=== PATIENT | female | born 1975 | race Caucasian/White ===

== ENCOUNTER 2017-09-01 14:39 | Emergency (ER) | payer MEDICAID ==
[2017-09-01] MEDS ORDERED: NORMAL SALINE 1000 ML 1,000 ML IV ONE (15:47)
[2017-09-01] MEDS ORDERED: METOCLOPRAMIDE HCL INJ/PF 10 MG/2 ML SDV IV ONE (15:48)
[2017-09-01] MEDS ORDERED: DIPHENHYDRAMINE HCL 50 MG/ML VIAL IV ONE (15:48)
--- NOTE | 2017-09-01 15:51 | ER Document Report ---
ED Medical Screen (RME) - General Chief Complaint: Headache Stated Complaint: MIGRAINE Time Seen by Provider: 09/01/17 15:43 Mode of Arrival: Ambulatory Information source: Patient Notes: I have greeted and performed a rapid initial assessment of this patient. A comprehensive ED assessment and evaluation of the patient, analysis of test results and completion of the medical decision making process will be conducted by additional ED providers. 41-year-old female presents emergency department with complaints of a four-day history of migraine headache. Patient states that she does have a history of migraine headaches. She states that this headache feels similar to her previous headaches. She denies sudden onset of the headache. Patient describes the headache as a throbbing sensation on the right side of her head. No radiation of the pain. No alleviating factors. Pain worse with light, noise, smells. Patient has taken tylenol and benadryl without relief. Patient denies numness, tingling, weakness, speech changes, vision changes. PHYSICAL EXAMINATION: GENERAL: Well-appearing, well-nourished and in no acute distress. HEAD: Atraumatic, normocephalic. EYES: Pupils equal round extraocular movements intact, conjunctiva are normal. ENT: Nares patent NECK: Normal range of motion LUNGS: No respiratory distress Musculoskeletal: Normal range of motion NEUROLOGICAL: Normal speech, normal gait. PSYCH: Normal mood, normal affect. SKIN: Warm, Dry, normal turgor, no rashes or lesions noted. TRAVEL OUTSIDE OF THE [place] IN LAST 30 DAYS: No - Related Data Allergies/Adverse Reactions: No Known Allergies Allergy (Unverified 09/01/17 14:41) Physical Exam - Vital signs Vitals: Temp Pulse Resp BP Pulse Ox 98.1 F 71 16 147/99 H 95 09/01/17 14:44 09/01/17 14:44 09/01/17 14:44 09/01/17 14:44 09/01/17 14:44 Course - Vital Signs Vital signs: Temp Pulse Resp BP Pulse Ox 98.1 F 71 16 147/99 H 95 09/01/17 14:44 09/01/17 14:44 09/01/17 14:44 09/01/17 14:44 09/01/17 14:44
--- NOTE | 2017-09-01 17:54 | ER Document Report ---
ED General - General Chief Complaint: Headache Stated Complaint: MIGRAINE Time Seen by Provider: 09/01/17 15:43 Mode of Arrival: Ambulatory Information source: Patient Notes: 41-year-old female presents emergency department with complaints of a four-day history of migraine headache. Patient states that she does have a history of migraine headaches. She states that this headache feels similar to her previous headaches. She denies sudden onset of the headache. Patient describes the headache as a throbbing sensation on the right side of her head. No radiation of the pain. No alleviating factors. Pain worse with light, noise, smells. Patient has taken tylenol and benadryl without relief. Patient denies numness, tingling, weakness, speech changes, vision changes. TRAVEL OUTSIDE OF THE [place] IN LAST 30 DAYS: No - HPI Onset/Duration: Gradual Quality of pain: Throbbing Severity: Severe Associated symptoms: None Exacerbated by: Denies, Other - light, sound, smell Relieved by: Denies Similar symptoms previously: Yes Recently seen / treated by doctor: No - Related Data Allergies/Adverse Reactions: No Known Allergies Allergy (Unverified 09/01/17 14:41) Past Medical History - General Information source: Patient - Social History Smoking Status: Never Smoker Chew tobacco use (# tins/day): No Frequency of alcohol use: Occasional Drug Abuse: None Family History: Reviewed & Not Pertinent Patient has suicidal ideation: No Patient has homicidal ideation: No Neurological Medical History: Reports: Hx Migraine Renal/ Medical History: Denies: Hx Peritoneal Dialysis Past Surgical History: Reports: Hx Appendectomy, Hx Cholecystectomy Review of Systems - Review of Systems Constitutional: No symptoms reported EENT: No symptoms reported Cardiovascular: No symptoms reported Respiratory: No symptoms reported Gastrointestinal: No symptoms reported Genitourinary: No symptoms reported Female Genitourinary: No symptoms reported Musculoskeletal: No symptoms reported Skin: No symptoms reported Hematologic/Lymphatic: No symptoms reported Neurological/Psychological: Headaches Physical Exam - Vital signs Vitals: Temp Pulse Resp BP Pulse Ox 98.1 F 71 16 147/99 H 95 09/01/17 14:44 09/01/17 14:44 09/01/17 14:44 09/01/17 14:44 09/01/17 14:44 Interpretation: Normal - Notes Notes: PHYSICAL EXAMINATION: GENERAL: Well-appearing, well-nourished and in no acute distress. HEAD: Atraumatic, normocephalic. EYES: Pupils equal round and reactive to light, extraocular movements intact, conjunctiva are normal. ENT: Nares patent, oropharynx clear without exudates. Moist mucous membranes. NECK: Normal range of motion, supple without lymphadenopathy LUNGS: Breath sounds clear to auscultation bilaterally and equal. No wheezes rales or rhonchi. HEART: Regular rate and rhythm without murmurs ABDOMEN: Soft, nontender, nondistended abdomen. No guarding, no rebound. No masses appreciated. Female : deferred Musculoskeletal: Normal range of motion, no pitting or edema. No cyanosis. NEUROLOGICAL: Cranial nerves grossly intact. Normal speech, normal gait. Normal sensory, motor exams PSYCH: Normal mood, normal affect. SKIN: Warm, Dry, normal turgor, no rashes or lesions noted. Course - Re-evaluation Re-evalutation: 09/01/17 17:56 Patient given fluids and benadryl. She declined the reglan. On reevaluation, patient is feeling better. I will discharge the patient home. Patient instructed to follow-up with her primary care physician this week, to continue taking medications as directed, and to return to emergency department for worsening symptoms. - Vital Signs Vital signs: Temp Pulse Resp BP Pulse Ox 98.1 F 71 16 147/99 H 95 09/01/17 14:44 09/01/17 14:44 09/01/17 14:44 09/01/17 14:44 09/01/17 14:44 Discharge - Discharge Clinical Impression: Migraine headache Qualifiers: Migraine type: unspecified Status migrainosus presence: without status migrainosus Intractability: not intractable Qualified Code(s): G43.909 - Migraine, unspecified, not intractable, without status migrainosus Condition: Stable Disposition: HOME, SELF-CARE Instructions: Use of Diphenhydramine, Headache ([facility]), Family Physicians / Practices
[2017-09-01 18:06] VITALS: BP 130/79
== END 2017-09-01 18:02 | disposition home or self-care (01) ==
LOC: ER 14:39
DX: G43.909 Migraine, unspecified, not intractable, without status migrainosus (principal); Z90.49 Acquired absence of other specified parts of digestive tract
CPT/HCPCS: 99283; 96361; 96374; J1200; J7030

== ENCOUNTER 2018-09-08 15:32 | Emergency (ER) | payer MEDICAID ==
--- NOTE | 2018-09-08 16:24 | RADIOLOGY REPORT (SQ) ---
EXAM DESCRIPTION: HAND RIGHT 3 VIEWS COMPLETED DATE/TIME: 09/08/2018 4:14 pm REASON FOR STUDY: bone tenderness/ swelling COMPARISON: None. EXAM PARAMETERS: NUMBER OF VIEWS: Three views. TECHNIQUE: AP, lateral and oblique radiographic images acquired of the right hand. LIMITATIONS: None. FINDINGS: MINERALIZATION: Normal. BONES: No acute fracture or dislocation. No worrisome bone lesions. JOINTS: No effusions. SOFT TISSUES: Soft tissue swelling over the dorsal hand. OTHER: No other significant finding. IMPRESSION: No fracture or dislocation of the right hand. Soft tissue swelling over the dorsal hand . TECHNICAL DOCUMENTATION: JOB ID: [id number] [employer]- All Rights Reserved Reading location - IP/workstation name: [email or web address]
[2018-09-08] MEDS ORDERED: AMOXICILLIN TRIHYDRATE 500 MG CAPSULE PO ONE (18:03)
[2018-09-08] MEDS ORDERED: AMOXICILLIN TR/POT CLAVULANATE 500-125 MG TAB PO ONE (18:03)
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
[2018-09-08 18:28] LABS: ABSOLUTE LYMPHOCYTES (AUTO) 0.9 10^3/uL (0.5-4.7); ABSOLUTE MONOCYTES (AUTO) 0.3 10^3/uL (0.1-1.4); ABSOLUTE NEUT (AUTO) 4.8 10^3/uL (1.7-8.2); BASOPHILS % (AUTO) 0.6 % (0-2); EOSINOPHILS % (AUTO) 0.8 % (0-6); HEMATOCRIT 39.7 % (36.0-47.0); HEMOGLOBIN 13.5 g/dL (12.0-15.5); LYMPHOCYTES % (AUTO) 14.1 % (13-45); MEAN CORPUSCULAR HEMOGLOBIN 34.5 pg (27.0-33.4); MEAN CORPUSCULAR HGB CONC 33.9 g/dL (32.0-36.0); MEAN CORPUSCULAR VOLUME 102 fl (80-97); MONOCYTES % (AUTO) 5.3 % (3-13); PLATELET COUNT 238 10^3/uL (150-450); RED CELL DISTRIBUTION WIDTH 14.3 % (11.5-14.0); SEGMENTED NEUTROPHILS % (AUTO) 79.2 % (42-78); TOTAL CELLS COUNTED % (AUTO) 100 %; WHITE BLOOD COUNT 6.1 10^3/uL (4.0-10.5)
[2018-09-08 18:50] LABS: ALANINE AMINOTRANSFERASE 20 U/L (9-52); ALKALINE PHOSPHATASE 76 U/L (38-126); ANION GAP 7 (5-19); ASPARTATE AMINO TRANSFERASE 21 U/L (14-36); BILIRUBIN,DIRECT 0.2 mg/dL (0.0-0.4); BILIRUBIN,TOTAL 0.5 mg/dL (0.2-1.3); BLOOD UREA NITROGEN 8 mg/dL (7-20); C-REACTIVE PROTEIN 38.6 mg/L (<10.0); CALCIUM 8.8 mg/dL (8.4-10.2); CARBON DIOXIDE 27 mmol/L (22-30); CHLORIDE 105 mmol/L (98-107); GLUCOSE 149 mg/dL (75-110); POTASSIUM 4.2 mmol/L (3.6-5.0); SODIUM 139.1 mmol/L (137-145); TOTAL PROTEIN 7.2 g/dL (6.3-8.2)
[2018-09-08] MEDS ORDERED: OXYCODONE-ACETAMINOPHEN 5-325 MG TABLET PO ONE (19:10)
[2018-09-08 19:11] LABS: ERYTHROCYTE SEDIMENTATION RATE 56 mm/hr (0-20)
[2018-09-08] MEDS ORDERED: ONDANSETRON HCL INJ/PF 4 MG/2 ML SDV IV ONE (21:09)
[2018-09-08] MEDS ORDERED: MORPHINE SULFATE 10 MG/ML INJ IV ONE (21:09)
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
--- NOTE | 2018-09-08 22:37 | RADIOLOGY REPORT (SQ) ---
MR LOWER EXTREMITY WITHOUT IV CONTRAST HISTORY: Injury to third metacarpal. Evaluate for tendon tear. COMPARISON: Radiographs from earlier the same day. TECHNIQUE: Multiplanar, multisequence MR imaging of the right hand was performed without the administration of intravenous gadolinium. FINDINGS: There is no abnormal T1 signal to suggest fracture or bone marrow contusion. There is mild attenuation with edema surrounding the overlying extensor tendon without full-thickness tear. Abnormal T1 and T2 edema is seen in the overlying subcutaneous tissues. IMPRESSION: 1. Mild attenuation with edema surrounding the extensor tendon overlying the third metacarpal. However, no full-thickness tear is identified. 2. No acute fracture or bone marrow contusion of the third metacarpal.
[2018-09-08] MEDS ORDERED: CEFTRIAXONE INJ 1000 MG VIAL IM ONE (23:03)
[2018-09-08] MEDS ORDERED: LIDOCAINE 1% INJ-PF (10 MG/ML) 30 ML SDV INJ ONE (23:03)
[2018-09-08] MEDS ORDERED: CEFTRIAXONE INJ 1000 MG VIAL IV ONE (23:11)
[2018-09-08] MEDS ORDERED: HYDROCODONE/ACETAMINOPHEN 5-325 MG (6 TAB/ER DISP) PO PRN (23:15)
[2018-09-08] MEDS ORDERED: CEFTRIAXONE 1 GM/D5W RTU 1 GM/50 ML RTUPB IV ONE (23:29)
[2018-09-08] MEDS ORDERED: ONDANSETRON ODT 4 MG TAB (6 TAB/ER DISP) PO PRN (23:46)
[2018-09-08 23:57] VITALS: BP 161/82
== END 2018-09-08 23:56 | disposition home or self-care (01) ==
LOC: ER 15:32
DX: M00.9 Pyogenic arthritis, unspecified (principal); L03.113 Cellulitis of right upper limb
CPT/HCPCS: 99284; 96374; 96375; 36415; 87040; 85025; 85652; 86140; 80053; 73718; 73130; J3490; J2270; J2405; J0696